=== PATIENT | female | born 1935 | race Caucasian/White ===

== ENCOUNTER 2017-06-14 05:58 | Inpatient (IN) | payer OTHER ==
[2017-06-14] MEDS ORDERED: FAMOTIDINE 20 MG TAB PO ONE (06:15)
[2017-06-14] MEDS ORDERED: DIAZEPAM 5 MG TAB PO ONE (06:15)
[2017-06-14] MEDS ORDERED: ASPIRIN EC 325 MG TAB PO ONE ×2 (06:15→06:40)
[2017-06-14] MEDS ORDERED: diphenhydrAMINE 25 MG CAP PO ONE ×2 (06:15→06:39)
[2017-06-14] MEDS ORDERED: NS 1,000 ML IV ONE (06:15)
--- NOTE | 2017-06-14 06:31 | CPEKG ---
Heart Rate: 88 RR Interval: 682 P-R Interval: 148 QRSD Interval: 130 QT Interval: 408 QTC Interval: 494 P Randall: 0 QRS Randall: -55 T Wave [place]: 155 EKG Severity - ABNORMAL ECG - EKG Impression: A-V DUAL-PACED COMPLEXES W/ SOME INHIBITION Electronically Signed By: Yoselyn Cleveland 14-Jun-2017 08:23:56
[2017-06-14] MEDS ORDERED: DIAZEPAM 5 MG TAB ONE (06:40)
[2017-06-14] MEDS ORDERED: FAMOTIDINE 20 MG TAB ONE (06:40)
[2017-06-14] MEDS ORDERED: CLOPIDOGREL BISULFATE 75 MG TAB PO ONE (06:45)
[2017-06-14] MEDS ORDERED: fentaNYL 100 MCG/2 ML INJ ONE (07:07)
[2017-06-14] MEDS ORDERED: LIDOCAINE 1% 300 MG/30 ML SDV ONE (07:07)
[2017-06-14] MEDS ORDERED: MIDAZOLAM 2 MG/2 ML VIAL ONE (07:08)
[2017-06-14] MEDS ORDERED: HEPARIN 10,000 UNIT/10 ML MDV ONE (07:08)
[2017-06-14] MEDS ORDERED: IOPAMIDOL (ISOVUE-370) 150 ML BTL IV ONE (07:08)
--- NOTE | 2017-06-14 07:41 | PDHPUP ---
History & Physical Update H&P update statement: This history and physical update is based on an assessment of the patient which was completed after admission or registration (within 24 hours), but prior to the surgery/procedure. H&P update: H&P reviewed & patient examined, no change in patient's condition since H&P completed
--- NOTE | 2017-06-14 07:42 | PDPROPOC ---
Sedation Plan of Care Sedation Plan of Care: mental status noted, patient educated of risks, benefits , alternatives, patient can tolerate sedation ASA Classification: ASA 2 Planned drugs: fentanyl, midazolam Mallampati Score: Class 2 Mallampati Reference Image: Patient passed 3-3-2 rule?: Yes
[2017-06-14 08:10] LABS: ANION GAP 17 mEq/L (8-16); CALCIUM 9.5 mg/dL (8.5-10.4); CARBON DIOXIDE 17 mEq/l (22-31); CHLORIDE 108 mEq/L (97-110); CHOLESTEROL 112 mg/dL (140-220); CREATININE 0.8 mg/dL (0.6-1.0); GLOMERULAR FILTRATION RATE > 60; GLUCOSE 200 mg/dL (70-100); HIGH DENSITY LIPOPROTEIN 56 mg/dL (40-85); LDL/HDL RATIO 0.75 RATIO (1.00-3.22); LOW DENSITY LIPOPROTEIN 42 mg/dL (80-100); MAGNESIUM 1.9 mg/dL (1.6-2.3); NON-HIGH DENSITY LIPOPROTEIN 56 mg/dL (90-129); POTASSIUM 5.3 mEq/L (3.5-5.2); SODIUM 142 mEq/L (134-144); SPECIMEN HEMOLYSIS 166; TRIGLYCERIDE 74 mg/dL (35-135); VERY LOW DENSITY LIPOPROTEINS 14 mg/dL (8-25)
[2017-06-14 08:16] LABS: HEMOGLOBIN 11.4 g/dL (12.6-16.3); MEAN CELL HEMOGLOBIN 33.6 pg (27.9-34.1); MEAN CELL HEMOGLOBIN CONCENTR. 33.5 g/dL (32.4-36.7); MEAN CELL VOLUME 100.3 fL (81.5-99.8); RED BLOOD CELL COUNT 3.39 10^6/uL (4.18-5.33); RED CELL DISTRIBUTION WIDTH 13.5 % (11.5-15.2)
[2017-06-14 08:25] LABS: INR 1.14 (0.83-1.16); PROTIME(PATIENT) 14.8 SEC (12.0-15.0)
[2017-06-14 08:26] LABS: APTT 29.1 SEC (23.0-38.0)
[2017-06-14] MEDS ORDERED: NITROGLYCERIN 1,500 MCG/15 ML VIAL MISC ONE (08:40)
[2017-06-14] MEDS ORDERED: PROTAMINE SULFATE 50 MG/5 ML VIAL IVP ONE (09:01)
[2017-06-14] MEDS ORDERED: OXYCODONE/APAP 5/325 TAB PO PRN (09:33)
[2017-06-14] MEDS ORDERED: LORazepam 2 MG/ML INJ IVP PRN (09:33)
[2017-06-14] MEDS ORDERED: TEMAZEPAM 15 MG CAP PO PRN (09:33)
[2017-06-14] MEDS ORDERED: NITROGLYCERIN 0.4 MG BTL SL PRN (09:33)
[2017-06-14] MEDS ORDERED: HYDROCODONE/APAP 5/325 TAB PO PRN (09:33)
[2017-06-14] MEDS ORDERED: ONDANSETRON 4 MG/2 ML VIAL IVP PRN (09:33)
[2017-06-14] MEDS ORDERED: ATROPINE SULFATE 1 MG/10 ML SYR IVP PRN (09:33)
--- NOTE | 2017-06-14 10:16 | CPIP ---
[f rep st] INVASIVE CARDIAC PROCEDURE DATE OF PROCEDURE: 06/14/2017 INDICATIONS FOR PROCEDURE: Critical aortic stenosis, shortness of breath. PROCEDURE: 1. Nonselective left groin sheathogram. 2. A 7-American sheath left common femoral vein. 3. Bilateral selective coronary angiography. 4. Left heart catheterization. 5. Balloon aortic valvuloplasty using 20 x 60 balloon. 6. Right heart catheterization with Opdyke-Angel catheter. 7. Percutaneous transluminal coronary angioplasty of high-grade mid distal left anterior descending disease. BRIEF HISTORY: This is an 81-year-old female with history of critical aortic stenosis, known coronar y artery disease. The patient has been evaluated by CT surgery and deemed to be a high-risk candidat e for open AVR. The patient was consented for right and left heart catheterization plus BAV. After informed consent, patient was brought to [facility] where patient was administere d 600 mg Plavix p.o. prior to the case. Using local lidocaine, a short 6-American sheath to left commo n femoral artery, a 7-American sheath to the left common femoral vein. Through the 7-American sheath, a Opdyke-Angel catheter was advanced. Right RA pressure was measured to be 12/6, A-wave of 16, V-wave 13, RV pressure was measured 77/15 with PA pressure 80/30. Wedge pressure was measured A wave 47, B wav e 33 with a mean of 39. Cardiac output was measured to be 2.9 by Jv with a cardiac index 1.9. O2 saturation was 97, Psat was 66%. After this was performed, the Opdyke-Angel catheter was removed, a JL4 catheter was then advanced to the right coronary artery. Images of the right coronary artery reveal ed short left main. Left circumflex artery appeared to give off small marginal arteries proximally, all had mild to moderate plaque disease. The left circumflex artery had tubular 40% disease. The mi d left circumflex artery had 40% disease, terminated to a large marginal artery which was healthy and free of disease. The LAD had ostial and proximal 50% calcified disease going into a diffusely disea sed vessel. In the mid LAD there was a stent which had mild ISR. Distal to the stent there was an a guillaume of tubular stenosis ranging up to 70%. Distally the vessel appeared to be patent but small. The re was small diagonal arteries coming off the LAD which were healthy and free of disease. After thes e images were obtained, the JL4 catheter was removed. The JR4 catheter was advanced to the right cor onary artery. Images of the right coronary artery revealed normal ostial RCA, mild plaque disease in the proximal mid RCA. The mid distal RCA had tubular 40% disease. The RPDA appeared to be mildly d iseased. RPLS appeared to be a small vessel but healthy. After these images were obtained, the JR4 catheter was removed. A pigtail catheter was then introduced and abdominal angiogram obtained which showed widely patent distal ascending aorta, widely patent common external and internal iliac arterie s and widely patent PLAYGROUND MONITOR. After this time, the pigtail catheter was removed. INTERVENTIONAL REPORT: At this time, the patient was administered a total of 8000 heparin during the case. An EBU 3.5 guide with side holes was advanced to the left coronary artery. Images of the lef t coronary artery once again revealed the diffuse disease in the LAD. We decided we would attempt to at least PTCA the high-grade disease past the stented area in the LAD. A Choice PT wire was placed down the LAD. Predilatation then commenced with a 2.0 x 12 compliant balloon; however this had diffi culty traversing the mid distal LAD. This was removed and a sprinter 125 x 12 balloon was then advan hien. This was placed in the mid distal LAD across the high-grade lesion that was noted and inflated to 16 atmospheres. Numerous sequential inflations occurred with this balloon. Angiographic images w ere then obtained. Images showed only minimal improvement of the mid distal LAD with these balloon i nflations. Additionally the balloon itself when inflated in the stented region actually appeared to match the size of the vessel, and this was only a 125 balloon. We decided that rather than placing a ny more aggressive balloons in this area and risking a dissection or perforation, we would stop at th is point, since that we would not have a stent size that would be appropriate to match the distal ves juani as small as it was. The balloon was removed. The wire was removed. The guide was then removed. The valve was crossed then with AL1 straight stiff Glidewire and a pigtail catheter placed in the l eft ventricle. Simultaneous pressures were then obtained which showed a mean gradient difference of approximately 70 mmHg. The Amplatz superstiff wire was placed in the LV. The pigtail catheter was r emoved. A 20 x 60 balloon was then advanced and multiple sequential placements occurred a cross the aortic valve with the balloon. After these inflations, the pigtail catheter was placed mukul k in the LV, simultaneous pressure was then obtained which showed a mean gradient of 35 mmHg for a ne t reduction of 35 mmHg. The pigtail catheter was then removed over the 0.035 wire. The left groin w as sutured in place. Patient tolerated procedure well with no complications. IMPRESSION: 1. Mildly severe reduction of cardiac output. 2. Severe pulmonary hypertension. 3. Coronary disease mainly in the form of the left anterior descending treated with percutaneous tra nsluminal coronary angioplasty, as the vessel was too small and diffusely diseased for any stent plac ement. 4. Successful balloon aortic valvuloplasty reducing mean gradient of pressure of 70 mmHg to 35 mmHg. 5. Widely patent aortoiliac conduit. PLAN: The patient has adequate access for TAVR. Given her diffuse left anterior descending disease and small vessels, there is no need at this point to repeat any additional intervention for the vesse l. We will proceed TAVR in the next 3-4 weeks. /[id number]/MODL
[2017-06-14] MEDS ORDERED: GLUCAGON HCL 1 MG VIAL SC PRN (14:00)
[2017-06-14] MEDS: INSULIN LISPRO 100 UNIT/ML SC SCH ×3 (14:19→18:19)
[2017-06-14] MEDS: BRIMONIDINE/TIMOLOL 5 ML OPHT.BTL EACHEYE SCH ×2 (16:06→19:56)
[2017-06-14] MEDS: CARVEDILOL 6.25 MG TAB PO SCH (18:19)
[2017-06-15 05:18] LABS: % IMMATURE GRANULYOCYTES 0.3 % (0.0-1.1); ABSOLUTE IMMATURE GRANULOCYTES 0.02 10^3/uL (0.00-0.10); ADD DIFF? NO; ADD MORPH? NO; ADD SCAN? NO; ATYPICAL LYMPHOCYTE FLAG 0 (0-99); FRAGMENT RBC FLAG 0 (0-99); HEMOGLOBIN 10.5 g/dL (12.6-16.3); LEFT SHIFT FLG 0 (0-99); LIPEMIA HEMOLYSIS FLAG 80 (0-99); MEAN CELL HEMOGLOBIN 33.8 pg (27.9-34.1); MEAN CELL HEMOGLOBIN CONCENTR. 32.8 g/dL (32.4-36.7); MEAN CELL VOLUME 102.9 fL (81.5-99.8); PLATELET CLUMPS FLAG 10 (0-99); PLATELET COUNT 122 10^3/uL (150-400); RED BLOOD CELL COUNT 3.11 10^6/uL (4.18-5.33); RED CELL DISTRIBUTION WIDTH 14.1 % (11.5-15.2)
[2017-06-15 05:36] LABS: ANION GAP 12 mEq/L (8-16); CALCIUM 8.7 mg/dL (8.5-10.4); CARBON DIOXIDE 19 mEq/l (22-31); CHLORIDE 110 mEq/L (97-110); CREATININE 1.1 mg/dL (0.6-1.0); GLOMERULAR FILTRATION RATE 48; GLUCOSE 196 mg/dL (70-100); POTASSIUM 4.3 mEq/L (3.5-5.2); SODIUM 141 mEq/L (134-144)
--- NOTE | 2017-06-15 08:55 | CPEKG ---
Heart Rate: 94 RR Interval: 638 P-R Interval: 169 QRSD Interval: 166 QT Interval: 448 QTC Interval: 561 P [place]: 0 QRS [place]: -67 T Wave [place]: 110 EKG Severity - ABNORMAL ECG - EKG Impression: A-V DUAL-PACED RHYTHM WITH SOME INHIBITION Electronically Signed By: Yoselyn Cleveland 15-Jun-2017 10:39:37
[2017-06-15] MEDS ORDERED: ASPIRIN 81 MG CHEWABLE TAB PO SCH (09:00)
[2017-06-15] MEDS ORDERED: RAMIPRIL 1.25 MG CAP PO SCH (09:00)
[2017-06-15] MEDS: INSULIN LISPRO 100 UNIT/ML SC SCH ×3 (09:12→17:48)
[2017-06-15] MEDS: ATORVASTATIN CALCIUM 20 MG TAB PO SCH (09:24)
[2017-06-15] MEDS: CALCIUM CARBONATE 500 MG TAB PO SCH (09:24)
[2017-06-15] MEDS: MULTIVITAMINS 1 EACH TAB PO SCH (09:25)
[2017-06-15] MEDS: CARVEDILOL 6.25 MG TAB PO SCH (09:29)
[2017-06-15] MEDS: PILOCARPINE 1% 15 ML OPHT.BTL EACHEYE SCH (09:45)
[2017-06-15] MEDS: BRIMONIDINE/TIMOLOL 5 ML OPHT.BTL EACHEYE SCH ×3 (11:18→21:08)
[2017-06-15] MEDS ORDERED: IOPAMIDOL (ISOVUE 370) 100 ML BTL IV ONE ×2 (11:40→12:38)
[2017-06-15] MEDS: BIMATOPROST 0.01% 2.5 ML OPHT.BTL EACHEYE SCH (11:42)
[2017-06-15] MEDS: INSULIN GLARGINE 100 UNITS/ML SYRINGE SC SCH (11:42)
[2017-06-15] MEDS ORDERED: NS 750 ML IV ONE ×2 (14:00→14:30)
[2017-06-15] MEDS ORDERED: NS 750 ML IV SCH (14:30)
--- NOTE | 2017-06-15 14:40 | ASMTCASEMG ---
Living Arrangements What is your living Answers: With Spouse arrangement? Who do you live with? Type Of Residence What kind of residence do Answers: House you live in? Discharge Plan Comments Coordination Status Comments Notes: Pt is a 81 y/o female admitted for L/RHC. Pt had a interventional cardiac procedure yesterday. CM met w/ pt and for dispo planning. Pt and are agreeable to having HC. Pt reports that she has had [facility] in the past and would like a referral to be made there. CM sent referral. [facility] is able to accept pt. CM to follow. Plan: HC; [facility] for PT, OT, SPL Date Signed: 06/15/2017 02:40 PM Electronically Signed By:ERLIN Malik
--- NOTE | 2017-06-15 15:33 | PDCARPN ---
Cardiology Progress Note Chief Complaint: patient reports mild fatigue symptoms. Assessment/Plan: Assessment: Patient is a 81 year old female significant past history that includes remote CVA (left-sided deficit) complete heart block, remote ppm implantation, ischemic heart disease, diabetes, hypertension, hyperlipidemia, moderate to severe aortic stenosis. She has been having worsening shortness of breath. She underwent cardiac catheterization and aortic valvuloplasty. Cardiac catheterization did reveal 70% lesion in mid LAD, in which PTCA was performed. Today, patient reports she has had a significant improvement in her dyspnea on exertion. She denies of any chest pain or pressure. Cardiac monitoring shows that she has been a sense V paced or AV paced throughout the evening, occasional premature ventricular contraction. Left groin site, catheter insertion site, with mild ecchymosis around puncture site, but no redness, swelling, drainage, or hematoma. No auscultated bruit noted over site. Patient was scheduled to undergo CTA of the chest and abdomen today, in preparation for possible TAVR procedure in the future. Unfortunately, patient was given 110 mL of contrast, but due to mechanical failure , the scan was unable to be performed. Plan: 1. Aortic stenosis: Status post valvuloplasty yesterday, patient reporting improvement in shortness of breath. Unfortunately CTA of the chest was unable to be done today, due to mechanical failure of the machine. Discussed options with patient and , due to their limited mobility, they would like her to stay overnight, be hydrated, an undergo procedure tomorrow morning. 2. CAD: Patient is status post PTCA of LAD, denying of any chest pain. She has resumed aspirin therapy, Dr. Jerry palma has requested no other anti-platelet therapy at this time. She has been resumed on carvedilol. 3. Hypertension: Patient's blood pressure has been running in the low 100s to 90s since procedure. Held ramipril today, decreased carvedilol dosage back to 6.25 mg p.o. twice daily. 4. Sick sinus syndrome: Remote ppm implantation, patient is AV paced. 5. Hyperlipidemia: Patient has been resumed on home statin therapy. 6. Diabetes: Patient has been resumed on home insulin dosage. Blood sugars a.c. and HS. 7. Renal insufficiency: Patient's GFR calculated today to be 33.8 mL/min, creatinine 1.1. Due to patient getting contrast yesterday during valvuloplasty in heart catheterization, an extra dose of contrast today despite CT angio not being done , will hydrate patient day will with normal saline at 50 mL an hour for total of 750. Repeat laboratory work tomorrow, if within normal limits, patient to undergo CTA angio as planned. 8. DVT prophylaxis: Has been greater than 24 hours since her coronary catheterization. Will start her on Lovenox at 30 mg q.day, starting tonight. Enrique villeda p.r.n.. Due to patient needing necessary testing, recent contrast load, and renal insufficiency, patient will be staying more than 2 nights for hydration, and follow up testing. This was discussed with Dr. Antony. 06/15/17 15:30 Subjective: Patient denies of any chest pressure, orthopnea, PND, lightheadedness, palpitations, near-syncope or syncopal events. Patient reports significant improvement in shortness of breath since undergoing PTCA of the LAD and valvuloplasty yesterday. Reviewed/Discussed With: other (Dr Magallon and Dr Antony) Objective: Vital Signs (8 Hrs) Temp Pulse Resp BP Pulse Ox 06/15/17 11:48 37.0 C 91 10 L 98/53 L 97 06/15/17 09:29 89 96/77 L 06/15/17 07:41 37.1 C 90 19 108/61 99 Intake/Output (24 Hrs) 06/14/17 06/15/17 06/16/17 05:59 05:59 05:59 Intake Total 50 Output Total 475 Balance -425 Intake: Oral (ml) 50 IV Intake (ml) 0 Output: Urine (ml) 475 Bedpan 125 Bedside Commode 350 Other: Weight 53.5 kg Number of Voids Bedpan 1 Bedside Commode 1 Incontinence 1 Result Diagrams: 06/16/17 13:10 06/16/17 04:02 - Physical Exam Constitutional: no apparent distress, other ( Elderly frail female) Ears, Nose, Mouth, Throat: moist mucous membranes Cardiovascular: regular rate and rhythm, no rubs, systolic murmur ( 2 to 3/6 systolic murmur right upper chest), pulses symmetric bilat, No diastolic murmur , No jugular vein distention, No carotid bruit Peripheral Pulses: 1+: dorsalis-pedis (R), dorsalis-pedis (L), 2+: carotid (R), carotid (L) Respiratory: clear to auscultate bilat, no crackles, no wheezes, No reduced air movement Gastrointestinal: normoactive bowel sounds Skin: no rashes, warm, other ( left groin site, catheter insertion site, mild ecchymosis around insertion site, no redness, swelling, drainage, hematoma noted. No auscultated bruit), No no edema ( trace pedal edema bilateral lower extremities) Neurologic: AAOx3 Psychiatric: cooperative, following commands ICD10 Worksheet Patient Problems: Problems Problem Status Onset Aortic stenosis Acute CAD (coronary artery disease) Acute CAD (coronary artery disease) Acute
[2017-06-15] MEDS ORDERED: CARVEDILOL 6.25 MG TAB PO SCH (18:00)
[2017-06-15] MEDS ORDERED: ENOXAPARIN 40 MG/0.4 ML SYR SC SCH (21:00)
[2017-06-15] MEDS: ENOXAPARIN 30 MG/0.3 ML SYR SC SCH (21:08)
[2017-06-16 05:45] LABS: ANION GAP 12 mEq/L (8-16); CALCIUM 8.6 mg/dL (8.5-10.4); CARBON DIOXIDE 22 mEq/l (22-31); CHLORIDE 109 mEq/L (97-110); CREATININE 1.3 mg/dL (0.6-1.0); GLOMERULAR FILTRATION RATE 39; GLUCOSE 95 mg/dL (70-100); POTASSIUM 4.3 mEq/L (3.5-5.2); SODIUM 143 mEq/L (134-144)
--- NOTE | 2017-06-16 07:15 | PDCARPN ---
Cardiology Progress Note Chief Complaint: SOB Assessment/Plan: Assessment: s/p BAV/PTCA Plan: 06/16/17 07:12 Pt's Cr slightly elevated today (most likely from contrast nephropathy) d/c CT scans given renal issue Can schedule as outpatient Will d/c today hold ASA/ACEi reduce coreg dose f/u next week, plan CTs within next 1-2 weeks Subjective: less SOB Reviewed/Discussed With: other (RN) Time Spent With Patient: 25 min Objective: Vital Signs (8 Hrs) Temp Pulse Resp BP Pulse Ox 06/16/17 04:00 36.9 C 65 16 98/52 L 100 06/16/17 00:10 80/51 L 06/15/17 23:43 36.6 C 65 16 75/60 L 100 Intake/Output (24 Hrs) 06/15/17 06/16/17 06/17/17 05:59 05:59 05:59 Intake Total 50 1533 Output Total 475 150 Balance -425 1383 Intake: Oral (ml) 50 775 IV Intake (ml) 0 IV Infused (ml) 758 Ns 750 ml @ 50 mls/hr IV 758 ONCE ONE Rx#:[id number] Output: Urine (ml) 475 150 Bedpan 125 Bedside Commode 350 150 Other: Weight 53.5 kg Number of Voids Bedpan 1 Bedside Commode 1 3 Incontinence 1 Number of Stools Bedside Commode 1 Result Diagrams: 06/15/17 04:24 06/16/17 04:02 - Physical Exam Constitutional: no apparent distress Eyes: PERRL Cardiovascular: regular rate and rhythm Peripheral Pulses: 1+: femoral (R), femoral (L) Respiratory: no crackles, no wheezes Gastrointestinal: normoactive bowel sounds Genitourinary: no suprapubic tenderness Skin: no rashes Musculoskeletal: no muscular tenderness Neurologic: AAOx3 Psychiatric: cooperative ICD10 Worksheet Patient Problems: Problems Problem Status Onset Aortic stenosis Acute CAD (coronary artery disease) Acute CAD (coronary artery disease) Acute - ICD10 Problem Qualifiers (1) CAD (coronary artery disease) Qualifiers: Coronary Disease-Associated Artery/Lesion type: [place] artery Associated angina: with other forms of angina (2) CAD (coronary artery disease) Qualifiers: Coronary Disease-Associated Artery/Lesion type: [place] artery Associated angina: with other forms of angina (3) Aortic stenosis Qualifiers: Cardiac valve disease etiology: nonrheumatic Qualified Code(s): I35.0 - Nonrheumatic aortic (valve) stenosis
[2017-06-16] MEDS ORDERED: CARVEDILOL 3.125 MG TAB PO SCH (08:00)
[2017-06-16] MEDS: MULTIVITAMINS 1 EACH TAB PO SCH (09:07)
[2017-06-16] MEDS: CALCIUM CARBONATE 500 MG TAB PO SCH (09:07)
[2017-06-16] MEDS: ATORVASTATIN CALCIUM 20 MG TAB PO SCH (09:08)
[2017-06-16] MEDS: INSULIN GLARGINE 100 UNITS/ML SYRINGE SC SCH (09:11)
[2017-06-16] MEDS: BRIMONIDINE/TIMOLOL 5 ML OPHT.BTL EACHEYE SCH (09:15)
[2017-06-16] MEDS: ENOXAPARIN 30 MG/0.3 ML SYR SC SCH (09:16)
[2017-06-16] MEDS: BIMATOPROST 0.01% 2.5 ML OPHT.BTL EACHEYE SCH (09:37)
[2017-06-16] MEDS: INSULIN LISPRO 100 UNIT/ML SC SCH ×2 (09:37→13:19)
[2017-06-16] MEDS: PILOCARPINE 1% 15 ML OPHT.BTL EACHEYE SCH (10:11)
--- NOTE | 2017-06-16 10:15 | PDIAF ---
- Diagnosis Code Status: Full Code - Medication Management Discharge Medications: Medications to Continue on Transfer Atorvastatin Calcium [Lipitor 20 mg (*)] 20 mg PO DAILY 06/21/13 [Last Taken ] Denosumab [Prolia] 60 mg SQ [id number] 06/21/13 [Last Taken 04/02/13] Insulin Glargine [Lantus 100 UNITS/ML (*)] 14 units SC DAILY 06/21/13 [Last Taken 06/21/13 08:00 6 UNITS] Insulin Lispro [humALOG LISPRO 100 units/ml (*)] 5 unit SC BID@,06/21/13 [ Last Taken 06/21/13 08:00 3 UNITS] Insulin Lispro [humALOG LISPRO 100 units/ml (*)] 6 unit SC DAILY18 06/21/13 [ Last Taken 06/20/13] Bimatoprost 0.01% [Lumigan 0.01% (*)] 1 drops EACHEYE DAILY 06/07/17 [Last Taken Unknown] Brimonidine/Timolol [Combigan (*)] 1 drop EACHEYE TID 06/07/17 [Last Taken Unknown] Calcium Carbonate [Oyster Shell Calcium 500 mg (*)] 500 mg PO DAILY 06/07/17 [ Last Taken Unknown] Glucagon,Human Recombinant [Glucagon Emergency Kit] 1 mg IJ AD PRN 06/07/17 [ Last Taken Unknown] Multivitamins [Multivitamin (*)] 1 each PO DAILY 06/07/17 [Last Taken Unknown] Pilocarpine 1% [Isopto Carpine 1% (*)] 1 drops EACHEYE DAILY 06/07/17 [Last Taken Unknown] Carvedilol [Coreg (*)] 3.125 mg PO BIDMEAL #60 tab 06/16/17 [Last Taken Unknown] Discharge Medications: Refer to the Discharge Home Medication list for PRN reason. - Orders Services needed: Registered Nurse, Physical Therapy, Occupational Therapy, Speech Language Pathologist Diet Recommendation: cardiac -low fat low salt Diet Texture: Regular Texture Diet, Thin Liquids, Meds Whole in Puree - Follow Up Care Current Providers and Referrals: Edilson Mahan MD [Primary Care Provider] - Peng Magallon MD [Medical Doctor] - (Follow up with Dr Magallon on June 21 at 10:00 a.m.)
[2017-06-16 13:19] LABS: % IMMATURE GRANULYOCYTES 0.5 % (0.0-1.1); ABSOLUTE IMMATURE GRANULOCYTES 0.03 10^3/uL (0.00-0.10); ADD DIFF? NO; ADD MORPH? NO; ADD SCAN? NO; ATYPICAL LYMPHOCYTE FLAG 0 (0-99); FRAGMENT RBC FLAG 0 (0-99); HEMATOCRIT 29.9 % (38.0-47.0); HEMOGLOBIN 10.2 g/dL (12.6-16.3); LEFT SHIFT FLG 0 (0-99); LIPEMIA HEMOLYSIS FLAG 90 (0-99); MEAN CELL HEMOGLOBIN 34.6 pg (27.9-34.1); MEAN CELL HEMOGLOBIN CONCENTR. 34.1 g/dL (32.4-36.7); MEAN CELL VOLUME 101.4 fL (81.5-99.8); MEAN PLATELET VOLUME 11.4 fL (8.7-11.7); PLATELET CLUMPS FLAG 0 (0-99); PLATELET COUNT 109 10^3/uL (150-400); RED BLOOD CELL COUNT 2.95 10^6/uL (4.18-5.33); RED CELL DISTRIBUTION WIDTH 14.2 % (11.5-15.2)
[2017-06-16 15:00] VITALS: BP 93/61; PULSE 68; RESP 14; TEMP 98.4; O2SAT 92
--- NOTE | 2017-06-16 15:15 | ECHO ---
[email or web address] [address] [address] Main: [phone] Fax: Transthoracic Echocardiogram Name: HUGO JOHNSON MR#: [id number] Study Date: 06/16/2017 Study Time: 12:43 PM Date of : 1935 Age: 81 year(s) Height: 144.8 cm (57 in.) Weight: 53.07 kg (117 lb.) BSA: 1.43 m2 Gender: Female Examination: Limited Echo Indication: eval for pericardial effusion Image Quality: Adequate Contrast: Requested by: Boaz Moran BP: 76 mmHg/50 mmHg Heart Rate: Rhythm: Indication: eval for pericardial effusion Procedure Staff Marketing Developer: Reading Physician: Keyur Barone Requesting Provider: Marketing Developer: Lidia Reeder Reading Physician: Requesting Provider: Conclusions: STAT limited echocardiogram to rule out pericardial effusion due to low blood pressure. No pericardial effusion. Estimated LV ejection fraction 15%-20%.. Measurements: Chambers Valvular Assessment AV/MV Valvular Assessment TV/PV Normal Normal Normal Name Value Range Name Value Range Name Value Range IVSd (2D): 0.8 cm (0.6 cm-1.1 cm) LVDd (2D): 4.6 cm (3.9 cm-5.3 cm) LVDs (2D): 4.3 cm (2.1 cm-4 cm) LVPWd (2D): 0.9 cm ( - ) LVEF (BP): 21 % (>=55 %) Continued Measurements: Findings: Exam Comments: STAT limited echocardiogram to rule out pericardial effusion due to low blood pressure. No pericardial effusion. Estimated LV ejection fraction 15%-20%.. Patient: HUGO JOHNSON Study Date: 06/16/2017 Page 1 of 2 12:43 PM (No Signature Object) Patient: HUGO JOHNSON Study Date: 06/16/2017 Page 2 of 2 12:43 PM D:_[id number]
--- NOTE | 2017-06-16 15:49 | ASDISCHSUM ---
Discharge Information Plan Status:Home with Home Health Medically Cleared to Leave:06/15/2017 Discharge Date:06/16/2017 03:41 PM CM D/C Disposition:Home Health Service ADT D/C Disposition:HHSNOTBCH Projected Discharge Date:06/16/2017 11:00 AM Transportation at D/C:Family Discharge Delay Reason: Follow-Up Date:06/16/2017 11:00 AM Discharge Slot: Final Diagnosis: Placement Information Referral Type:*Home Health Care Services Referral ID:[id number] Provider Name:[facility] [place] Address 1:[address] [place] [address] Address 2: City:[place] Selection Factors: State:[place] Patient Contact Information Contact Name:RAY Relationship: Address:[facility] Work Phone: City:[place] Alternate Phone: State/Zip Code:[place] [address] Email: Financial Information Financial Class: Primary Plan Desc:MEDICARE INPATIENT Primary Plan Number:[id number] Secondary Plan Desc:[facility] Secondary Plan Number:[id number] Assessment Information [facility] Initial CM Assessment Living Arrangements What is your living Answers: With Spouse arrangement? Who do you live with? Type Of Residence What kind of residence do Answers: House you live in? Discharge Plan Comments Coordination Status Comments Notes: Pt is a 81 y/o female admitted for L/RHC. Pt had a interventional cardiac procedure yesterday. CM met w/ pt and for dispo planning. Pt and are agreeable to having HC. Pt reports that she has had [facility] in the past and would like a referral to be made there. CM sent referral. [facility] is able to accept pt. CM to follow. Plan: HC; [facility] for PT, OT, SPL Date Signed: 06/15/2017 02:40 PM Electronically Signed By:ERLIN Malik LACE LACE Length of stay for Answers: 2 days current admission Acuity / Level of Care Answers: No. Emergency dept visits in Answers: 0 last 6 months Score: 2 Date Signed: 06/16/2017 10:34 AM Electronically Signed By:Nela Weldon RN Case Management Discharge Plan Note Case Management Discharge Discharge Order Complete? Answers: Yes Patient to Obtain Answers: Independently Medications Transportation Arranged Answers: Family/Friends Faxed Final Orders Answers: Yes Notes: to [facility] Agency/Facility Transfer Answers: Yes Report Printed & Faxed to Receiving Agency Discharge Comments Notes: Notified [facility] of d/c. Faxed final orders. Date Signed: 06/16/2017 10:35 AM Electronically Signed By:Nela Weldon RN Intervention Information Intervention Type:*CULVER-Signed Date of Service:06/15/2017 11:17 AM Patient Type:Observation Staff Member:Mansi Payne Hours: Discipline: Severity: Comment:
--- NOTE | 2017-06-16 21:24 | GDS ---
[f rep st] DISCHARGE SUMMARY ADMISSION DIAGNOSES: 1. Severe aortic stenosis. 2. Coronary artery disease. 3. Hypertension. 4. Sick sinus syndrome. 5. Hyperlipidemia. 6. Diabetes. 7. Renal insufficiency. DISCHARGE DIAGNOSES: 1. Aortic stenosis. 2. Status post aortic valvuloplasty. 3. Coronary artery disease. 4. Status post percutaneous transluminal coronary angioplasty of the left anterior descending. 5. Hypertension. 6. History of sick sinus syndrome with remote permanent pacemaker implantation. 7. Hyperlipidemia. 8. Diabetes. 9. Renal insufficiency. PROCEDURES PERFORMED DURING HOSPITALIZATION: 1. Carotid Doppler. 2. Angiogram of the left femoral vein. 3. Bilateral selective coronary angiogram. 4. Left heart catheterization. 5. Balloon aortic valvuloplasty. 6. Right heart catheterization. 7. Percutaneous transluminal coronary angioplasty of the LAD. 8. Limited echocardiogram. BRIEF HISTORY: Please see H and P. Briefly, the patient is an 81-year-old female with significant p ast history that includes remote CVA, complete heart block, remote PPM implantation, ischemic heart d isease and cardiomyopathy, diabetes, hypertension, hyperlipidemia, and moderate to severe aortic sten osis. Reporting increased shortness of breath with exertion. She was evaluated by Dr. Magallon, and found to be an appropriate candidate to undergo aortic valvuloplasty to see if it helps with her symp toms. HOSPITAL COURSE: The patient admitted to [facility], prepped for procedure, and taken to the cardiac cathet erization lab. There, Dr. Magallon performed a left heart catheterization, right heart catheterizatio n, nonselective left groin sheathogram and balloon valvuloplasty of the aorta. The following finding s were she had mildly to severely reduced cardiac output. She had severe pulmonary hypertension. Sh e had coronary disease mainly in the form of left anterior descending, which was treated with a percu taneous coronary intervention. At that time, it was felt that the vessel was too small and diffusely diseased for any stent placement. She was noted to have a widely patent aortic conduit, and he was successfully able to perform a balloon aortic valvuloplasty, reducing her mean gradient from 70 to 35 mmHg. Upon completion of the study, the patient was taken back to the [facility], and ultimately to the [facility] U for overnight observation. On her first night in the PCU, she remained AV paced with no malignant arrhythmias or pauses. It was noted that she was mildly hypotensive. Her ramipril was discontinued, and her carvedilol was decreased down to 6.25 mg p.o. twice daily. She had no chest pain or symptom s suggesting of ischemia, and reporting improvement in symptoms of shortness of breath. It was planned for her to undergo CTA of the chest and abdomen, in preparation for evaluation for pos sible TAVR procedure to be done in the future. Unfortunately, on the when going down to [facility], she received a full dose of contrast, but the CT scan due to a malfunction with not able to do an y imaging. The patient was brought upstairs, was brought back to her room. She remained stable. Du e to her low creatinine clearance, she was started on gentle hydration due to having contrast load fo r 2 days in a row. Her vital signs remained stable. With the idea of no significant increase in cre atinine the next day, consideration of repeating CTA. On the , this morning, she remained stable . No significant arrhythmias overnight. Unfortunately, her creatinine did bump up to 1.3. Due to t his, it was felt that not to proceed with CT angio until a later date. She was given her morning dos e of carvedilol, in which she had a reduced dose due to more hypotension during the night. It was de creased to 3.125 mg. Unfortunately, by 10:30/11 o'clock, she was holding a systolic blood pressure i n the 80s. She was asymptomatic. At that point, it was decided to discontinue her carvedilol also. Limited echo was done, which showed EF of about 15%-20%. No pericardial effusion was noted. By 3 o 'clock this afternoon, her blood pressure had raised back to normal. The patient did want to go home . Her CBC was repeated, and no signs of bleeding post procedure noted. H and H remained stable sinc e procedure. The patient did wish to go home. Arrangements have made been made for home health care to help her and her . Due to her renal insufficiency, she was also taken off her aspirin the rapy. At the time of her discharge, her blood pressure was 93/61. She remained AV paced with no malignant arrhythmias. PHYSICAL EXAMINATION: Done today. GENERAL APPEARANCE: Elderly, frail female. She is alert and adan ented to person, place, time, situation. She appears to be in no acute distress. CURRENT VITAL SIGN S: 93/61, heart rate 68, AV paced on the monitor, 92% on room air, temperature 36.9 degre es Celsius. HEENT: Head is normocephalic. Lips and tongue are pink and moist. The patient is note d to have left-sided droop, which is her baseline since her previous CVA. NECK: Trachea is midline, +2 carotid pulses bilateral. No JVD noted. LUNGS: Clear to auscultation. No rhonchi, rales or wh eezes. CARDIAC: Regular rate, regular rhythm. S1, S2. A 3/6 systolic murmur noted along the right upper and left border hale. ABDOMEN: Soft, nontender, bowel sounds x4 quadrants. SKIN: [place], wa rm, dry. No cyanosis, no clubbing, no peripheral edema. VASCULAR: +1 radial bilateral, +1 posterio r tibial pulses bilateral. Left groin site, catheter insertion site, with mild acute ecchymosis palm -sized around the catheter insertion site, but no redness, swelling, drainage or hematoma noted. No auscultated bruit. DISCHARGE LABORATORY STUDIES: Laboratory studies drawn today show WBC of 6.5, hemoglobin 10.2, hemat ocrit 29.9, platelet count of 109, sodium 143, potassium 4.3, chloride 109, CO2 of 22, BUN 47, creati nine 1.3, glucose 95, calcium 8.6. Fingerstick glucose done before discharge was 171. STUDIES: Cardiac catheterization procedures as mentioned above. The patient did undergo carotid Dop pler on day of admission, showing no flow limiting carotid stenosis. There was mild calcified plaque in the left carotid bifurcation. Limited echocardiogram as mentioned above. Electrocardiogram done on admission showing AV paced with occasional premature ventricular contractio n. DISCHARGE DISPOSITION: The patient will be discharged home in fair condition. She is under activity restrictions, not lifting more than 10 pounds for the next week, and no strenuous activity for the n ext 2 weeks. DISCHARGE MEDICATIONS: Please see discharge med reconciliation sheet. DISCHARGE INSTRUCTIONS: Post percutaneous PTCA and valvuloplasty discharge instructions went over wi th the patient and her . They both verbalized understanding. This includes monitoring for si gns of infection, bleeding precautions, medication compliancy, activity restrictions, bathing precaut ions, and followup appointments. The patient does have a followup appointment with Dr. Magallon next week. The patient and told if there are any problems or concerns that come up once discharge d, they are to notify our office or return to the hospital. Total time spent on discharge greater than 30 minutes. /[id number]/MODL
[2017-07-03] MEDS ORDERED: Denosumab [Prolia] 60 MG SQ SCH (09:00)
== END 2017-06-16 15:41 | disposition home health service (06) | DRG 274 ==
LOC: FCATH 05:58 → F2W 09:15 → INTOOBSV 09:15 → F2W 13:29 → OBSVTOIN 06-15 14:52
PROVIDERS: ADMIT Internal Medicine Cardiovascular Disease; ATTEND Internal Medicine Cardiovascular Disease
PROC: 02703ZZ Dilation of Coronary Artery, One Artery, Percutaneous Approach (ICD-10-PCS; principal; 2017-06-14)
PROC: B2111ZZ Fluoroscopy of Multiple Coronary Arteries using Low Osmolar Contrast (ICD-10-PCS; principal; 2017-06-14)
PROC: 027F3ZZ Dilation of Aortic Valve, Percutaneous Approach (ICD-10-PCS; principal; 2017-06-14)
PROC: 4A023N8 Measurement of Cardiac Sampling and Pressure, Bilateral, Percutaneous Approach (ICD-10-PCS; principal; 2017-06-14)
DX: I35.0 Nonrheumatic aortic (valve) stenosis (principal); I25.10 Atherosclerotic heart disease of native coronary artery without angina pectoris; I27.20 Pulmonary hypertension, unspecified; I69.344 Monoplegia of lower limb following cerebral infarction affecting left non-dominant side; E11.9 Type 2 diabetes mellitus without complications; I10 Essential (primary) hypertension; E78.5 Hyperlipidemia, unspecified; Z95.0 Presence of cardiac pacemaker; Z95.5 Presence of coronary angioplasty implant and graft; Z79.4 Long term (current) use of insulin
CPT/HCPCS: 82947-QW; 92526-GN; 92610-GN; 97116-GP; 97161-GP; 97165-GO; 97530-GP; C1725; C1769; C1887; G0378; G8978-GP-CK; G8979-GP-CI; G8987-GO-CI; G8988-GO-CI; G8996-GN-CI; G8997-GN-CI; J0461; J1644; J1650; J1815; J2250; J2720; J3010; Q9967